=== PATIENT | female | born 1930 | race Caucasian/White ===

== ENCOUNTER 2017-06-09 07:12 | Emergency (ER) | payer MEDICARE, OTHER ==
[2017-06-09] MEDS ORDERED: traMADol HCl 50 MG TAB ONE (08:20)
[2017-06-09] MEDS ORDERED: Ketorolac Tromethamine 30 MG/ML VIAL ONE (08:21)
[2017-06-09] MEDS ORDERED: Bacitracin Zinc 1 Packet ONE (08:36)
--- NOTE | 2017-06-09 19:45 | RAD ---
LEFT KNEE FOUR VIEWS 06/09/17 No fracture or joint effusion was seen. Degenerative changes consisting of osteophytes and slight med ial joint space narrowing was noted. The patellofemoral joint is also involved by arthritic change. A rteriosclerosis is seen in the popliteal artery. IMPRESSION: Degenerative changes but no acute findings. POS: HOME
--- NOTE | 2017-06-09 20:04 | CT ---
CT OF THE BRAIN WITHOUT CONTRAST 06/09/[address] was performed following trauma. Comparison is made with prior CT exam dated 10/28. No intracranial bleeding or extra-axial hematoma was seen. Profound deep white matter lucency and are as of more focal hypolucency are consistent with chronic ischemic changes and probably lacunar infarc ts. There has been no change since the prior scans, so none appear acute. As before, there is a 2.5 c m mass that abuts the falx cerebri in the right frontal lobe consistent with a meningioma. Some calci fication is seen at its margin. It size has not changed over time. The ventricles are normal in size for age and atrophy. No skull fractures were seen. The sphenoid sinus is clear as are the visible par anasal sinuses. The mastoid air cells are clear. IMPRESSION: 1. No acute intracranial findings. 2. 2.5 cm right frontal meningioma, stable. 3. Diffuse prominent chronic ischemic changes. POS: HOME
--- NOTE | 2017-06-09 20:09 | CT ---
CT OF THE CERVICAL SPINE 06/09/[address] of the cervical spine was performed following trauma. Comparison is made with prior study dated 10/28/16. There have been no adverse interval changes. There is reversal of the normal cervical lordosis in the mid to lower cervical region which is no different than before. Disc spaces are narrowed below the C 4 level with a very degenerated disc seen at C6-C7. No fracture, dislocation, or soft tissue swelling was seen at any cervical level. The C1 to dens distance is normal. Cervical spondylosis is present at all levels to some degree. In general, the facets on the right side of the cervical spine are more effected than those on the left. No large gross disc herniations were noted, though small ones would be easily missed. IMPRESSION: Chronic changes in the cervical spine with no acute traumatic findings. Exam unchanged from October 2016. POS: HOME
--- NOTE | 2017-06-09 20:11 | RAD ---
LEFT HAND THREE VIEWS 06/09/17 No acute fracture was seen. Severe degenerative changes are present in the first carpometacarpal join t. There may have been old trauma here. No acute carpal fractures were identified. The thumb appeared intact. IMPRESSION: No acute bony finding. POS: HOME
--- NOTE | 2017-06-09 21:05 | RAD ---
LEFT HIP THREE VIEWS 06/09/17 No fracture of the femoral head or neck was seen. The joint space is only mildly narrowed. There is n o dislocation. Only one of the views shows all of the left pubic ring. On that view, there is a questionable line wh ere the left inferior pubic ramus contacts the body of the pubis. I cannot exclude a minimal nondispl aced fracture here, but other studies would be needed to confirm it. It could just as easily be an ov erlapping line from the rectum and the gas within it. IMPRESSION: 1. No evidence of hip fracture. 2. Equivocal line at the junction of the left inferior pubic ramus and body of the pubis. Code T POS: HOME
== END 2017-06-09 10:18 ==
LOC: BURERS 07:12
DX: S61.012A Laceration without foreign body of left thumb without damage to nail, initial encounter (principal); S16.1XXA Strain of muscle, fascia and tendon at neck level, initial encounter; S00.83XA Contusion of other part of head, initial encounter; S70.00XA Contusion of unspecified hip, initial encounter; S80.00XA Contusion of unspecified knee, initial encounter; K21.9 Gastro-esophageal reflux disease without esophagitis; Z85.3 Personal history of malignant neoplasm of breast; I48.91 Unspecified atrial fibrillation; I34.1 Nonrheumatic mitral (valve) prolapse; E11.9 Type 2 diabetes mellitus without complications; E78.5 Hyperlipidemia, unspecified; I10 Essential (primary) hypertension; E66.9 Obesity, unspecified; F32.9 Major depressive disorder, single episode, unspecified; Z79.4 Long term (current) use of insulin; Z79.899 Other long term (current) drug therapy; Z79.82 Long term (current) use of aspirin; W06.XXXA Fall from bed, initial encounter
CPT/HCPCS: 70450; 72125; 93005; J1885

== ENCOUNTER 2017-06-16 08:04 | Emergency (ER) | payer MEDICARE, OTHER ==
[2017-06-16 08:37] LABS: #Basophils 0.1 thou/uL (0.0-0.2); #Eosinphils 0.2 thou/uL (0.0-0.7); #Lymphocytes 2.5 thou/uL (1.20-3.40); #Monocytes 0.9 thou/uL (0.11-0.59); #Neutrophils 6.2 thou/uL (1.40-6.50); %Basophils 0.6 % (0.0-1.0); %Eosinophils 2.1 % (0.0-10.0); %Lymphocytes 25.4 % (21.0-51.0); %Monocytes 9.5 % (0.0-10.0); %Neutrophils 62.3 % (42.0-75.0); Mean Corpuscular HGB CONC 31.9 g/dL (32.0-36.0); Mean Corpuscular Hemoglobin 28.7 pg (27.0-31.0); Mean Platelet Volume 8.2 fL (7.4-10.4); Platelet Count 227 thou/uL (130-400); RBC Distribution Width 12.5 % (11.5-14.5); Red Blood Cell (RBC) Count 4.55 mill/uL (4.20-5.40); White Blood Cell (WBC) Count 9.9 thou/uL (4.8-10.8)
[2017-06-16 08:40] LABS: INR-International Normal Ratio 1.4; PTT 35.5 SEC (22.9-36.1); Prothrombin Time 17.1 SEC (12.0-14.7)
[2017-06-16 08:50] LABS: ALT (SGPT) 18 U/L (8-55); AST (SGOT) 20 U/L (5-34); Albumin 3.7 g/dL (3.4-4.8); Alkaline Phosphatase 79 U/L (40-150); Anion Gap 16 mmol/L (10-20); BUN (Urea Nitrogen) 25 mg/dL (9.8-20.1); Bilirubin, Total 0.5 mg/dL (0.2-1.2); Calc. Creatinine Clearance 0 mL/min (70-130); Calcium 10.2 mg/dL (7.8-10.44); Carbon Dioxide 29 mmol/L (23-31); Chloride 99 mmol/L (98-107); Digoxin 1.16 ng/mL (0.8-2.0); Estimated GFR-MDRD 57; Glucose 71 mg/dL (83-110); Potassium 4.4 mmol/L (3.5-5.1); Protein, Total 6.7 g/dL (6.0-8.3); Sodium 140 mmol/L (136-145)
[2017-06-16 08:52] LABS: CKMB 1.7 ng/mL (0-6.6); Troponin I 0.037 ng/mL (< 0.028)
[2017-06-16 09:37] LABS: Bilirubin Negative (Negative); Blood, Urine Moderate (Negative); Clarity Cloudy (Clear); Glucose, Urine (Dipstick) Negative (Negative); Leukocyte Small (Negative); Nitrite Positive (Negative); Protein, Urine (Dipstick) Negative (Neg-Trace); Urobilinogen 0.2 mg/dL (0.2-1.0); pH, Urine 5.5 (5.0-9.0)
[2017-06-16 09:45] LABS: Bacteria/HPF 3+ HPF (None Seen)
[2017-06-16] MEDS ORDERED: cefTRIAXone\\ROCEPHIN 1 GM VIAL ONE (10:32)
[2017-06-16] MEDS ORDERED: Sterile Water 10 ML ONE (10:32)
[2017-06-16 12:40] LABS: Troponin I Less than 0.088 ng/mL (< 0.028)
--- NOTE | 2017-06-16 17:31 | RAD ---
PELVIS ONE VIEW 06/16/17 No fracture was seen. The pelvic bones appear intact. The hips appear intact. The symphysis shows no widening or off-set. The SI joints are symmetrical. IMPRESSION: No acute bony findings. POS: HOME
--- NOTE | 2017-06-16 17:37 | RAD ---
PORTABLE CHEST 06/16/17 An AP portable film at 0857 is compared with a 03/09/17 study. The heart is mildly enlarged but unchanged in size. There is no mediastinal widening or shift. The juanito ngs are clear. There are no effusions. IMPRESSION: No acute thoracic finding. POS: HOME
--- NOTE | 2017-06-16 19:31 | CT ---
CT OF THE BRAIN WITHOUT CONTRAST 06/16/17 Comparison is made with the 06/09 study. Again noted is the 2.5 cm right falx meningioma anteriorly. No intracranial bleeding or extra-axial hematoma was seen. There is no sign of edema. The ventricular sizes are normal for age and atrophy. D iffuse ischemic changes are present as usual. The calvarium appears intact. There is no air fluid lev el in the sphenoid sinus or any of the visible paranasal sinuses. IMPRESSION: 1. No acute traumatic intracranial findings. 2. 2.5 cm right frontal mass consistent with a meningioma. Unchanged from prior study. POS: HOME
== END 2017-06-16 14:30 | disposition short-term general hospital (02) ==
LOC: BURERS 08:04
DX: S80.11XA Contusion of right lower leg, initial encounter (principal); R07.9 Chest pain, unspecified; N39.0 Urinary tract infection, site not specified; R79.89 Other specified abnormal findings of blood chemistry; K21.9 Gastro-esophageal reflux disease without esophagitis; I48.91 Unspecified atrial fibrillation; E11.9 Type 2 diabetes mellitus without complications; E78.5 Hyperlipidemia, unspecified; I10 Essential (primary) hypertension; E66.9 Obesity, unspecified; F32.9 Major depressive disorder, single episode, unspecified; Z79.82 Long term (current) use of aspirin; Z79.01 Long term (current) use of anticoagulants; Z79.4 Long term (current) use of insulin; W19.XXXA Unspecified fall, initial encounter
CPT/HCPCS: 36415; 51701; 70450; 71010; 72170; 80053; 80162; 81003; 81015; 82553; 84484; 85025; 85610; 85730; 87077; 87086; 87186; 93005; 94760; 96374; A4216; A4353; J0696

== ENCOUNTER 2017-07-05 10:21 | Emergency (ER) | payer MEDICARE, OTHER ==
[2017-07-05 10:37] LABS: Bilirubin Negative (Negative); Blood, Urine Negative (Negative); Clarity Cloudy (Clear); Glucose, Urine (Dipstick) Negative (Negative); Leukocyte Moderate (Negative); Nitrite Positive (Negative); Protein, Urine (Dipstick) Negative (Neg-Trace); Specific Gravity, Urine 1.015 (1.005-1.030); Urobilinogen 0.2 mg/dL (0.2-1.0)
[2017-07-05 10:42] LABS: Bacteria/HPF 3+ HPF (None Seen); RBC/HPF 0-3 HPF (0-3); Squamous Epithelial 0-3 HPF (0-3)
[2017-07-05 10:47] LABS: #Eosinphils 0.3 thou/uL (0.0-0.7); #Lymphocytes 2.7 thou/uL (1.20-3.40); #Monocytes 0.7 thou/uL (0.11-0.59); #Neutrophils 3.7 thou/uL (1.40-6.50); %Basophils 0.4 % (0.0-1.0); %Eosinophils 3.6 % (0.0-10.0); %Lymphocytes 36.4 % (21.0-51.0); %Monocytes 9.4 % (0.0-10.0); %Neutrophils 50.1 % (42.0-75.0); Hemoglobin 12.1 g/dL (12.0-16.0); Mean Corpuscular HGB CONC 32.8 g/dL (32.0-36.0); Mean Corpuscular Volume 88.4 fl (81.0-99.0); Mean Platelet Volume 6.7 fL (7.4-10.4); Platelet Count 258 thou/uL (130-400); RBC Distribution Width 13.3 % (11.5-14.5); Red Blood Cell (RBC) Count 4.19 mill/uL (4.20-5.40); White Blood Cell (WBC) Count 7.4 thou/uL (4.8-10.8)
[2017-07-05 11:08] LABS: ALT (SGPT) 13 U/L (8-55); AST (SGOT) 15 U/L (5-34); Albumin 3.2 g/dL (3.4-4.8); Alkaline Phosphatase 112 U/L (40-150); Anion Gap 14 mmol/L (10-20); BUN (Urea Nitrogen) 15 mg/dL (9.8-20.1); Bilirubin, Total 0.4 mg/dL (0.2-1.2); CK (CPK) 11 U/L (29-168); Calc. Creatinine Clearance 0 mL/min (70-130); Calcium 9.3 mg/dL (7.8-10.44); Carbon Dioxide 32 mmol/L (23-31); Chloride 104 mmol/L (98-107); Estimated GFR-MDRD 60; Globulin 2.8 g/dL (2.4-3.5); Glucose 98 mg/dL (83-110); Potassium 4.3 mmol/L (3.5-5.1); Sodium 146 mmol/L (136-145)
[2017-07-05] MEDS ORDERED: cefTRIAXone\\ROCEPHIN 1 GM VIAL ONE (11:13)
--- NOTE | 2017-07-05 20:22 | RAD ---
PELVIS ONE VIEW 07/05/17 Comparison is made with the 06/16/17 study. There still does not appear to be any definite fracture of the bony pelvis or hips. The SI joints wer e symmetrical. The hip joints were equal in width. The symphysis shows no widening or offset. If pain persists, it may be worth doing a CT or MRI of the region as this will sometimes show occult injurie s that do not show up on plain radiographs. As before, a considerable amount of fecal material is see n in the left colon. IMPRESSION: No acute findings. POS: HOME
--- NOTE | 2017-07-05 20:23 | RAD ---
LEFT HIP TWO VIEWS 07/05/17 No fracture was seen. The hip appears intact and the hip joint was unremarkable. The adjacent pubic r ing appears intact. IMPRESSION: No significant findings. POS: HOME
== END 2017-07-05 12:48 ==
LOC: BURERS 10:21
DX: N39.0 Urinary tract infection, site not specified (principal); S80.10XA Contusion of unspecified lower leg, initial encounter; S40.029A Contusion of unspecified upper arm, initial encounter; K21.9 Gastro-esophageal reflux disease without esophagitis; I48.91 Unspecified atrial fibrillation; E11.9 Type 2 diabetes mellitus without complications; E78.5 Hyperlipidemia, unspecified; I10 Essential (primary) hypertension; E66.9 Obesity, unspecified; F32.9 Major depressive disorder, single episode, unspecified; Z85.3 Personal history of malignant neoplasm of breast; Z79.4 Long term (current) use of insulin; Z92.3 Personal history of irradiation; X58.XXXA Exposure to other specified factors, initial encounter
CPT/HCPCS: 36415; 51701; 72170; 80053; 81003; 81015; 82550; 85025; 87077; 87086; 87186; 93005; 96374; J0696